=== PATIENT | female | born 1965 | race Caucasian/White ===

== ENCOUNTER 2018-12-10 21:02 | Inpatient (IN) ==
[2018-12-10] MEDS ORDERED: ONDANSETRON INJ 2 MG/ML 2 ML VIAL IV STA (21:56)
[2018-12-10] MEDS ORDERED: SODIUM CHLORIDE 0.9% 1000ML 1,000 ML IV ONE (21:56)
[2018-12-10] MEDS ORDERED: HYDROmorphone INJ 0.5 MG/0.5 ML SYR IV STA (21:56)
[2018-12-10 22:26] LABS: Basophils # (auto) 0.01 K/uL (0-0.2); Basophils % (auto) 0.1 %; Eosinophils # (auto) 0.02 K/uL (0-0.5); Eosinophils % (auto) 0.2 %; Hematocrit (blood only) 28.1 % (37-47); Hemoglobin 9.6 g/dL (12.0-16.0); Immature Granulocytes # (auto) 0.01 K/uL (0.00-0.02); Immature Granulocytes % (auto) 0.1 %; Lymphocytes # (auto) 0.83 K/uL (1.2-3.4); Lymphocytes % (auto) 9.5 %; Mean Corpuscular Hgb Conc 34.2 g/dL (32-36); Mean Corpuscular Volume 84.9 fL (80-100); Mean Platelet Volume 10.9 fL (7.4-10.4); Monocytes # (auto) 0.97 K/uL (0.11-0.59); Monocytes % (auto) 11.1 %; Neutrophils # (auto) 6.89 K/uL (1.4-6.5); Platelet Count 160 K/uL (130-400); RDW Coefficient of Variation 12.5 % (11.5-14.5); RDW Standard Deviation 38.7 fL (36.4-46.3); Red Blood Count 3.31 M/uL (4.2-5.4); White Blood Count 8.73 K/uL (4.8-10.8)
[2018-12-10 22:43] LABS: Albumin Level 3.4 gm/dl (3.4-5.0); BUN Creatinine Ratio 11.6 (10-20); Calcium 8.7 mg/dl (8.5-10.1); Creatinine Clr Calc Pharmacy 33.9 ml/min; Est GFR (African American) 30.5; Est GFR (Non-African American) 26.3; Potassium 3.1 mmol/L (3.5-5.1)
[2018-12-10 22:46] LABS: Albumin Globulin Ratio 0.9 (0.9-2); Bilirubin,Total 0.8 mg/dl (0.2-1); Globulin 3.7 gm/dl (2.5-4.0); Total Protein 7.1 gm/dl (6.4-8.2)
--- NOTE | 2018-12-10 23:01 | CT Scan Report ---
CT SCAN OF THE ABDOMEN AND PELVIS WITHOUT IV CONTRAST CLINICAL HISTORY: Lower abdominal pain. Hematuria. COMPARISON STUDY: No priors. TECHNIQUE: CT scan of the abdomen and pelvis is performed from the lung bases to the proximal femora. Images are reviewed in the axial, sagittal, and coronal planes. IV contrast was not administered for this examination as per the referring clinician. A dose lowering technique was utilized adhering to the principles of ALARA. CT DOSE: 450.70 mGy.cm FINDINGS: Lung bases: The heart is normal in size and there is a small pericardial effusion. The lung bases are clear. Liver: The unenhanced liver is enlarged, measuring 21.9 cm in length. The liver is normal in contour. Hepatic attenuation is heterogeneous. There is no intrahepatic biliary ductal dilatation. Gallbladder: Surgically absent noting clips in the gallbladder fossa. Spleen: Normal in size and attenuation. Pancreas: The unenhanced pancreas is moderately atrophic and grossly unremarkable. Adrenal glands: Unremarkable. Kidneys: The unenhanced kidneys demonstrate cortical atrophy. There is mild right hydroureteronephros is. The right ureter is distended to the level of the bladder, and there is associated right-sided pe rinephric and perinephric stranding/fluid. No obstructing lesion is clearly seen. No hydronephrosis i s seen on the left. No renal calculi are Identified. There is no evidence of contour deforming renal mass lesion. Abdominal vasculature: The abdominal aorta is normal in course and caliber. Stomach and bowel: There is a small hiatal hernia. Postoperative change is noted in the stomach. Ther e is no bowel obstruction. Pill fragments are noted in the cecum. The appendix is not identified and reported surgically absent. Peritoneum: There is no intraperitoneal free air or abdominal ascites. Lymphadenopathy: None. Pelvic viscera: The bladder is normal as visualized. The uterus is surgically absent. No adnexal lesi on is seen. Trace free fluid is noted in the cul-de-sac. Skeletal structures: The skeletal structures are osteopenic. Mild lumbosacral spondylosis is observed . There is postoperative change from L5 -S1 spinal fusion. No lytic or blastic lesions are seen. IMPRESSION: 1. There is mild right hydroureteronephrosis. The right ureter is distended to the level of the bladd er, and there is associated right-sided perinephric and periureteric stranding and fluid. No obstruct ing lesion is identified. This may represent the sequelae of a recently passed kidney stone. Correlat e clinically and with urinalysis for evidence of ascending urinary tract infection. 2. There is no left-sided hydronephrosis, and no renal calculi are identified in either kidney. 3. Hepatomegaly. 4. Trace free fluid in the cul-de-sac is nonspecific and likely on a reactive basis. 5. Additional findings as above. Electronically signed by: Pola Todd M.D. 12/10/2018 11:00 PM
[2018-12-10 23:57] LABS: Appearance Urine Cloudy (Clear); Bacteria Urine Automated Negative (Negative); Bilirubin Urine Negative (Negative); Blood Urine Trace (Negative); Color Urine Yellow; Epithelial Cell Urine Auto >30 /lpf (0-5); Glucose Urine UA Negative (Negative); Ketones Urine Negative (Negative); Leukocyte Esterase Urine Trace (Negative); Nitrite Urine Negative (Negative); Protein Urine 3+ (Negative); RBC Urine Automated 0-4 /hpf (0-4); Specific Gravity Urine 1.015 (1.000-1.030); Urobilinogen Urine Negative (Negative); pH Urine 5.5 (4.5-7.5)
[2018-12-11] MEDS ORDERED: PHENAZOPYRIDINE HCL 200 MG TAB PO STA (00:21)
[2018-12-11] MEDS ORDERED: cefTRIAXone SODIUM 1,000 MG/50 ML BAG IV STA (00:21)
[2018-12-11] MEDS ORDERED: POTASSIUM CHLORIDE / WTR 10 MEQ/100 ML PLCT IV ONE (00:21)
[2018-12-11] MEDS: SODIUM CHLORIDE 0.9% 1000ML 1,000 ML IV STA ×2 (00:33→01:52)
--- NOTE | 2018-12-11 01:44 | History & Physical Report ---
Date of Service December 11, 2018 Assessment & Plan (1) Acute kidney injury (nontraumatic): Acute kidney injury/hyponatremia/hypokalemia- Labs upon admission: Creatinine 2.07, sodium 126, potassium 3.1. Hold HCTZ, lisinopril, Trintellix and metformin. Add serum osmolality and urine osmolality. Will repeat laboratories in a.m. Further management based upon return of osmolality studies. Present on Admission?: Yes (2) Hyponatremia: See above Present on Admission?: Yes (3) Hypokalemia: See above Present on Admission?: Yes (4) Pyelonephritis: Continue ceftriaxone 1 g IV daily begun in the ED. Follow urine culture and sensitivity Present on Admission?: Yes (5) Diabetes mellitus: Hold metformin. Placed on Accu-Cheks before meals and at bedtime with NovoLog coverage per scale. Present on Admission?: Yes (6) Hypertension: Holding HCTZ and lisinopril as noted above. Continue carvedilol 12.5 mg p.o. twice daily with hold parameters. Present on Admission?: Yes (7) Hyperlipidemia: Continue rosuvastatin 20 mg daily Present on Admission?: Yes (8) Depression: Holding Trintellix as noted. Continue Aripiprazole. Present on Admission?: Yes (9) Attention deficit disorder (ADD) in adult: Continue Ritalin 10 mg p.o. 3 times daily. Present on Admission?: Yes (10) Muscle spasm: Cyclobenzaprine 5 mg p.o. 3 times daily as needed Present on Admission?: Yes History of Present Illness Chief Complaint: The patient presents to the emergency department with complaint of generally feeling fatigued, mildly disoriented, and pelvic discomfort. She reports her symptoms began a few weeks ago, but have worsened in the past 24 hours. She denies any personal history of kidney stones, but she does report grandparents have had kidney stones. Primary Care Provider: NO PCP The patient is a 53-year-old female with a past medical history including hypertension, diabetes mellitus, hyperlipidemia, depression, and muscle spasm who reports symptoms initially began 2 weeks ago consisting of generalized fatigue, weakness, disorientation and pelvic discomfort. CT performed in ED shows mild right hydro-nephrosis, and a dilated ureter to the region of the urinary bladder, suggestive of possible recent passage of a kidney stone. She denies any personal history kidney stones, but does report that she has grandparents of a kidney stones. Her mother also was recently diagnosed with a kidney infection. She reports that she regularly drinks about 2 quarts of water daily. She lives in [place], and her medications are prescribed by physicians in [place]. Allergies Allergy/AdvReac Type Severity Reaction Status Date / Time moxifloxacin [From Avelox] Allergy FACIAL Unverified 12/10/18 22:57 SWELLING Home Medications Home Medications Medication Instructions Recorded Confirmed Type aripiprazole 2 mg PO QAM 12/10/18 12/10/18 History carvedilol 12.5 mg PO BID 12/10/18 12/10/18 History cyclobenzaprine 5 mg PO TID PRN 12/10/18 12/10/18 History hydrochlorothiazide 12.5 mg PO DAILY 12/10/18 12/10/18 History lisinopril 20 mg PO DAILY 12/10/18 12/10/18 History metformin 1,000 mg PO BID 12/10/18 12/10/18 History methylphenidate HCl [Ritalin] 10 mg PO TID 12/10/18 12/10/18 History rosuvastatin 20 mg PO DAILY 12/10/18 12/10/18 History vortioxetine [Trintellix] 20 mg PO DAILY 12/10/18 12/10/18 History Past Med/Surg History Medical History Diabetes Hyperlipidemia Hypertension Surgical History History of appendectomy History of hysterectomy Social History Preferred Language: Afghan Feels Safe at Home: Yes Smoking Status: Never smoker Review of Systems Review of Systems: The patient denies chest pain, palpitations, shortness of breath, dyspnea on exertion, cough, lower extremity swelling, sore throat, fevers, chills, sweats, vomiting, diarrhea , constipation, blood in urine or stool, dysuria, urinary frequency or urgency, headache, memory loss, loss of consciousness, rash, abnormal bruising or bleeding, imbalance, focal weakness, numbness or tingling in arms or legs, generalized arthralgias or myalgias, neck pain, or night sweats. The review of systems is otherwise negative other than for that already noted above, and at least 10 systems have been reviewed. Physical Exam Physical Exam: The patient is awake, alert and oriented 3, well developed and well nourished, normocephalic and atraumatic, lying in bed and in no acute distress. HEENT--PERRL, EOMI, mucous membranes and oropharynx dry. Neck--supple. No JVD. No bruits. Thyroid normal, trachea midline, no adenopathy. Heart--normal S1 and S2. No murmurs, rubs or gallops. Lungs--clear bilaterally, no respiratory distress, no accessory muscle use. Abdomen--normal bowel sounds and soft. Nontender. Nondistended, no hernias or masses, no organomegaly. Extremities--no cyanosis or clubbing. No edema. There are good distal pulses b/l. Dermatologic--normal skin turgor, normal color, no abnormal lymph nodes, no rash. Neurologic--cranial nerves II through XII grossly intact. Rheumatologic--normal range of motion. Psychiatric--normal affect. Results & Data Vital Signs (Past 12 Hours) Vital Signs Temp Pulse Pulse Resp BP BP Pulse Ox 12/10/18 22:59 97 12/10/18 22:57 73 16 155/83 H 97 12/10/18 21:05 98.6 F 79 16 166/87 H 100 Laboratory Results Laboratory Results WBC 8.73 K/uL (4.8-10.8) 12/10/18 22:13 RBC 3.31 M/uL (4.2-5.4) L 12/10/18 22:13 Hgb 9.6 g/dL (12.0-16.0) L 12/10/18 22:13 Hct 28.1 % (37-47) L 12/10/18 22:13 MCV 84.9 fL (80-100) 12/10/18 22:13 MCH 29.0 pg (25-34) 12/10/18 22:13 MCHC 34.2 g/dL (32-36) 12/10/18 22:13 RDW Std Deviation 38.7 fL (36.4-46.3) 12/10/18 22:13 RDW Coeff of Tabby 12.5 % (11.5-14.5) 12/10/18 22:13 Plt Count 160 K/uL (130-400) 12/10/18 22:13 MPV 10.9 fL (7.4-10.4) H 12/10/18 22:13 Immature Gran % (Auto) 0.1 % 12/10/18 22:13 Neut % (Auto) 79.0 % 12/10/18 22:13 Lymph % (Auto) 9.5 % 12/10/18 22:13 Clay % (Auto) 11.1 % 12/10/18 22:13 Eos % (Auto) 0.2 % 12/10/18 22:13 Baso % (Auto) 0.1 % 12/10/18 22:13 Immature Gran # (Auto) 0.01 K/uL (0.00-0.02) 12/10/18 22:13 Neut # (Auto) 6.89 K/uL (1.4-6.5) H 12/10/18 22:13 Lymph # (Auto) 0.83 K/uL (1.2-3.4) L 12/10/18 22:13 [place] # (Auto) 0.97 K/uL (0.11-0.59) H 12/10/18 22:13 Eos # (Auto) 0.02 K/uL (0-0.5) 12/10/18 22:13 Baso # (Auto) 0.01 K/uL (0-0.2) 12/10/18 22:13 Sodium 126 mmol/L (136-145) L 12/10/18 22:13 Potassium 3.1 mmol/L (3.5-5.1) L 12/10/18 22:13 Chloride 89 mmol/L (98-107) L 12/10/18 22:13 Carbon Dioxide 26 mmol/L (21-32) 12/10/18 22:13 Anion Gap 11.0 (3-11) 12/10/18 22:13 BUN 24 mg/dl (7-18) H 12/10/18 22:13 Creatinine 2.07 mg/dl (0.6-1.2) H 12/10/18 22:13 Est Cr Clr Drug Dosing 33.9 ml/min 12/10/18 22:13 Est GFR ( Amer) 30.5 12/10/18 22:13 Est GFR (Non-Af Amer) 26.3 12/10/18 22:13 BUN/Creatinine Ratio 11.6 (10-20) 12/10/18 22:13 Glucose 144 mg/dl (70-99) H 12/10/18 22:13 Osmolality 265 mOsm/kg (280-300) L 12/10/18 22:15 Calcium 8.7 mg/dl (8.5-10.1) 12/10/18 22:13 Total Bilirubin 0.8 mg/dl (0.2-1) 12/10/18 22:13 AST 8 U/L (15-37) L 12/10/18 22:13 ALT 11 U/L (12-78) L 12/10/18 22:13 Alkaline Phosphatase 51 U/L (45-117) 12/10/18 22:13 Total Protein 7.1 gm/dl (6.4-8.2) 12/10/18 22:13 Albumin 3.4 gm/dl (3.4-5.0) 12/10/18 22:13 Globulin 3.7 gm/dl (2.5-4.0) 12/10/18 22:13 Albumin/Globulin Ratio 0.9 (0.9-2) 12/10/18 22:13 Lipase 58 U/L (73-393) L 12/10/18 22:13 Urine Color Yellow 12/10/18 23:40 Urine Appearance Cloudy (Clear) A 12/10/18 23:40 Urine pH 5.5 (4.5-7.5) 12/10/18 23:40 Ur Specific [place] 1.015 (1.000-1.030) 12/10/18 23:40 Urine Protein 3+ (Negative) H 12/10/18 23:40 Urine Glucose (UA) Negative (Negative) 12/10/18 23:40 Urine Ketones Negative (Negative) 12/10/18 23:40 Urine Blood Trace (Negative) H 12/10/18 23:40 Urine Nitrite Negative (Negative) 12/10/18 23:40 Urine Bilirubin Negative (Negative) 12/10/18 23:40 Urine Urobilinogen Negative (Negative) 12/10/18 23:40 Ur Leukocyte Esterase Trace (Negative) H 12/10/18 23:40 Urine WBC (Auto) 10-30 /hpf (0-5) H 12/10/18 23:40 Urine RBC (Auto) 0-4 /hpf (0-4) 12/10/18 23:40 U Hyaline Cast (Auto) 5-10 /lpf (0-5) H 12/10/18 23:40 U Epithel Cells (Auto) >30 /lpf (0-5) H 12/10/18 23:40 Urine Bacteria (Auto) Negative (Negative) 12/10/18 23:40 Ur Renal Epithelial Cell Not Reportable 12/10/18 23:40 Diagnostic Findings [place], [place] [phone] CT Scan Report Patient: Madelaine FOFANAit Date: 12/10/18 MR#: [id number] Acct ID:[id number]: Date: [address] Zip: [place] [id number] Age: 53Location: ED Sex: F Room/Bed: Att Phy: Diagnosis: ABDOMINAL PAIN, HAVEN'T PEED ALL DAY Mary Phy: PCP,NO Service Date: 12/10/18 Fam Phy: Interpreting Phy: Ploa Todd MD Admit Phy: Ordering Phy: Stuart Rm MD cc: ~ CT SCAN OF THE ABDOMEN AND PELVIS WITHOUT IV CONTRAST CLINICAL HISTORY: Lower abdominal pain. Hematuria. COMPARISON STUDY: No priors. TECHNIQUE: CT scan of the abdomen and pelvis is performed from the lung bases to the proximal femora. Images are reviewed in the axial, sagittal, and coronal planes. IV contrast was not administered for this examination as per the referring clinician. A dose lowering technique was utilized adhering to the p rinciples of ALARA. CT DOSE: 450.70 mGy.cm FINDINGS: Lung bases: The heart is normal in size and there is a small pericardial effusion. The lung bases are clear. Liver: The unenhanced liver is enlarged, measuring 21.9 cm in length. The liver is normal in contour. Hepatic attenuation is heterogeneous. There is no intrahepatic biliary ductal dilatation. Gallbladder: Surgically absent noting clips in the gallbladder fossa. Spleen: Normal in size and attenuation. Pancreas: The unenhanced pancreas is moderately atrophic and grossly unremarkable. Adrenal glands: Unremarkable. Kidneys: The unenhanced kidneys demonstrate cortical atrophy. There is mild right hydroureteronephrosis. The right ureter is distended to the level of the bladder, and there is associated right-sided perinephric and perinephric stranding/fluid. No obstructing lesion is clearly seen. No hydronephrosis is seen on the left. No renal calculi are Identified. There is no evidence of contour deforming renal mass lesion. Abdominal vasculature: The abdominal aorta is normal in course and caliber. Stomach and bowel: There is a small hiatal hernia. Postoperative change is noted in the stomach. There is no bowel obstruction. Pill fragments are noted in the cecum. The appendix is not identified and reported surgically absent. Peritoneum: There is no intraperitoneal free air or abdominal ascites. Lymphadenopathy: None. Pelvic viscera: The bladder is normal as visualized. The uterus is surgically absent. No adnexal lesion is seen. Trace free fluid is noted in the cul-de-sac. Skeletal structures: The skeletal structures are osteopenic. Mild lumbosacral spondylosis is observed. There is postoperative change from L5 -S1 spinal fusion. No lytic or blastic lesions are seen. IMPRESSION: 1. There is mild right hydroureteronephrosis. The right ureter is distended to the level of the bladder, and there is associated right-sided perinephric and periureteric stranding and fluid. No obstructing lesion is identified. This may represent the sequelae of a recently passed kidney stone. Correlate clinically and with urinalysis for evidence of ascending urinary tract infection. 2. There is no left-sided hydronephrosis, and no renal calculi are identified in either kidney. 3. Hepatomegaly. 4. Trace free fluid in the cul-de-sac is nonspecific and likely on a reactive basis. 5. Additional findings as above. Electronically signed by: Pola Todd M.D. 12/10/2018 11:00 PM Dictated: 12/10/18 2253 Transcribed: 12/10/18 2253 Code Status & VTE Plan Code Status Full code VTE Prophylaxis Plan VTE Prophylaxis will be ordered: Yes PG Care Time/CCT Total # of Minutes Spent Total Time Spent with Patient: Total time spent is greater than 50% in coordination of care (as documented) at patient's floor/unit and/or counseling patient:
--- NOTE | 2018-12-11 01:45 | Emergency Department Note ---
Entered by Mary Leon acting as a scribe for Stuart Rm MD ED Provider Note CHIEF COMPLAINT: Unable to void HISTORY OF PRESENT ILLNESS: The patient is a 53 year old female who presents to the Emergency Room with complaints of being unable to void since this morning. She complains of lower abdominal pain, rating it as an 8/10 in severity. The patient complains of urinary urgency for the past 2 weeks. She complains of nausea/vomiting today. The patient notes that she had hematuria two weeks ago, but it is now relieved. Pt denies LOC, headache, fevers, chills, diaphoresis, visual changes, neck pain, chest pain, breathing difficulties, back pain, melena, hematochezia, numbness, weakness, lymphadenopathy, rash, or other complaints. She notes that she took Cystex [employer], but it provided no relief. REVIEW OF SYSTEMS: See HPI for pertinent positives and negatives. A total of ten systems were reviewed and were otherwise negative. PMHx/PSHx: Hysterectomy, appendectomy, HTN, hyperlipidemia, diabetes SOCIAL HISTORY: Patient lives at home. PHYSICAL EXAM: GENERAL: Awake, alert, well-appearing, in no distress HENT: Normocephalic, atraumatic. Oropharynx unremarkable. EYES: PERRL. Normal conjunctiva. Sclera non-icteric. NECK: Inspection normal. Non-tender. Supple. No nuchal rigidity. FROM. No masses. RESPIRATORY: Clear to auscultation. No wheezes. No rales. Normal respiratory effort. CARDIAC: Normal rate. Normal rhythm. No murmurs. No rubs. Extremities warm and well perfused. Pulses equal. No JVD. GI: Soft, non-distended. Suprapubic tenderness to palpation. No rebound or guarding. No masses. RECTAL: Deferred. MUSCULOSKELETAL: Atraumatic. Chest examination reveals no tenderness. The back is symmetrical on inspection without obvious abnormality. There is right CVA tenderness to palpation. No joint edema. LOWER EXTREMITIES: Calves are equal size bilaterally and non-tender. No edema. No discoloration. NEURO: Normal sensorium. No sensory or motor deficits noted. SKIN: No rash or jaundice noted. EMERGENCY DEPARTMENT COURSE: 2152: Past medical records reviewed. The patient was evaluated in room C07, and a complete history and physical examination were performed. 2303: PN reviewed and no issues identified. 2358: I reassessed the patient, and she stated that she feels better. She reported that, as far as she knows, the sodium, potassium, renal issues, and anemia are all new. 0020: Dr. Akbar was paged. 0036: I spoke with Dr. Akbar, [facility] hospitalist, about the patient's case. He will further evaluate the patient. MEDICAL DECISION MAKING: Triage Nursing notes reviewed and agree them. Additional history obtained from the family. The patient's history was concerning for urinary symptoms, flank and abdominal pain. Differential diagnosis: Etiologies such as UTI, renal colic, appendicitis, diverticulitis, mesenteric ischemia, aortic pathology, infections, inflammatory bowel disease, PUD, biliary pathology, as well as others were entertained. Physical examination findings: As above. Bladder scan was unremarkable. ER treatment provided: Saline hydration IV Zofran IV Dilaudid On reassessment the patient was feeling better. IV potassium IV Rocephin Oral Pyridium On reassessment the patient felt better. Diagnostic interpretation by me: The labs revealed a moderate anemia on CBC. No leukocytosis. The patient has hyponatremia, hypokalemia, and an elevated creatinine concerning for acute kidney injury. Urinalysis revealed hematuria. There was sign of UTI. Urine culture pending. Imaging studies: CT scan of the abdomen pelvis was performed. There is right-sided hydronephrosis and hydroureter with stranding. In light of the symptoms finding on urinalysis, this is concerning for infection. Consultation: A consultation was placed with the [facility] hospitalist. The case was discussed and diagnostics were reviewed. The patient was evaluated in the ER for further treatment. IMPRESSION: Acute renal failure, hyponatremia, hypokalemia, pyelonephritis PLAN: Evaluated by hospitalist The scribe's documentation has been prepared under my direction and personally reviewed by me in its entirety. I confirm that the note above accurately reflects all work, treatment, procedures, and medical decision making performed by me. Impression & Plan Acute renal failure, Hyponatremia, Hypokalemia, Pyelonephritis Past Med/Surg History Medical History Diabetes Hyperlipidemia Hypertension Surgical History History of appendectomy History of hysterectomy Social History Preferred Language: Guatemalan Feels Safe at Home: Yes Smoking Status: Never smoker Results & Data Vital Signs Vital Signs - 24 hr 12/10/18 21:05 12/10/18 22:57 12/10/18 22:59 Temperature 37.0 C Temperature Source Oral Sepsis Recent Fever Within 48 Hours No Sepsis New/Unexplained Change in Mental Status No Sepsis Action Taken by Nursing No Action Required Pulse Rate 79 Pulse Rate [Apical] 73 Pulse Rhythm [Apical] Regular Pulse Strength [Apical] Normal Respiratory Rate 16 16 Respiratory Effort / Characteristics Non-Labored Respiratory Depth Normal Respiratory Pattern Regular Blood Pressure 166/87 H Blood Pressure [Right Arm] 155/83 H Blood Pressure Mean 113 Blood Pressure Mean [Right Arm] 107 Blood Pressure Position [Right Arm] Lying Pulse Oximetry 100 97 97 Oxygen Delivery Method Room Air Room Air Room Air Home Medications Current Medication List: was personally reviewed by me Laboratory Data Attestation: I reviewed the patient's lab results. Result diagrams: 12/10/18 22:13 12/10/18 22:13 Lab Results 12/10/18 12/10/18 12/10/18 Range/Units 22:13 22:13 22:15 WBC 8.73 (4.8-10.8) K/uL RBC 3.31 L (4.2-5.4) M/uL Hgb 9.6 L (12.0-16.0) g/dL Hct 28.1 L (37-47) % MCV 84.9 (80-100) fL MCH 29.0 (25-34) pg MCHC 34.2 (32-36) g/dL RDW Std Deviation 38.7 (36.4-46.3) fL RDW Coeff of Tabby 12.5 (11.5-14.5) % Plt Count 160 (130-400) K/uL MPV 10.9 H (7.4-10.4) fL Immature Gran % (Auto) 0.1 % Neut % (Auto) 79.0 % Lymph % (Auto) 9.5 % Ritchie % (Auto) 11.1 % Eos % (Auto) 0.2 % Baso % (Auto) 0.1 % Immature Gran # (Auto) 0.01 (0.00-0.02) K/uL Neut # (Auto) 6.89 H (1.4-6.5) K/uL Lymph # (Auto) 0.83 L (1.2-3.4) K/uL Ritchie # (Auto) 0.97 H (0.11-0.59) K/uL Eos # (Auto) 0.02 (0-0.5) K/uL Baso # (Auto) 0.01 (0-0.2) K/uL Sodium 126 L (136-145) mmol/L Potassium 3.1 L (3.5-5.1) mmol/L Chloride 89 L (98-107) mmol/L Carbon Dioxide 26 (21-32) mmol/L Anion Gap 11.0 (3-11) BUN 24 H (7-18) mg/dl Creatinine 2.07 H (0.6-1.2) mg/dl Est Cr Clr Drug Dosing 33.9 ml/min Est GFR ( Amer) 30.5 Est GFR (Non-Af Amer) 26.3 BUN/Creatinine Ratio 11.6 (10-20) Glucose 144 H (70-99) mg/dl Osmolality 265 L (280-300) mOsm/kg Calcium 8.7 (8.5-10.1) mg/dl Total Bilirubin 0.8 (0.2-1) mg/dl AST 8 L (15-37) U/L ALT 11 L (12-78) U/L Alkaline Phosphatase 51 (45-117) U/L Total Protein 7.1 (6.4-8.2) gm/dl Albumin 3.4 (3.4-5.0) gm/dl Globulin 3.7 (2.5-4.0) gm/dl Albumin/Globulin Ratio 0.9 (0.9-2) Lipase 58 L (73-393) U/L Urine Color Urine Appearance (Clear) Urine pH (4.5-7.5) Ur Specific [place] (1.000-1.030) Urine Protein (Negative) Urine Glucose (UA) (Negative) Urine Ketones (Negative) Urine Blood (Negative) Urine Nitrite (Negative) Urine Bilirubin (Negative) Urine Urobilinogen (Negative) Ur Leukocyte Esterase (Negative) Urine WBC (Auto) (0-5) /hpf Urine RBC (Auto) (0-4) /hpf U Hyaline Cast (Auto) (0-5) /lpf U Epithel Cells (Auto) (0-5) /lpf Urine Bacteria (Auto) (Negative) Ur Renal Epithelial Cell 12/10/18 Range/Units 23:40 WBC (4.8-10.8) K/uL RBC (4.2-5.4) M/uL Hgb (12.0-16.0) g/dL Hct (37-47) % MCV (80-100) fL MCH (25-34) pg MCHC (32-36) g/dL RDW Std Deviation (36.4-46.3) fL RDW Coeff of Tabby (11.5-14.5) % Plt Count (130-400) K/uL MPV (7.4-10.4) fL Immature Gran % (Auto) % Neut % (Auto) % Lymph % (Auto) % Ritchie % (Auto) % Eos % (Auto) % Baso % (Auto) % Immature Gran # (Auto) (0.00-0.02) K/uL Neut # (Auto) (1.4-6.5) K/uL Lymph # (Auto) (1.2-3.4) K/uL Ritchie # (Auto) (0.11-0.59) K/uL Eos # (Auto) (0-0.5) K/uL Baso # (Auto) (0-0.2) K/uL Sodium (136-145) mmol/L Potassium (3.5-5.1) mmol/L Chloride (98-107) mmol/L Carbon Dioxide (21-32) mmol/L Anion Gap (3-11) BUN (7-18) mg/dl Creatinine (0.6-1.2) mg/dl Est Cr Clr Drug Dosing ml/min Est GFR ( Amer) Est GFR (Non-Af Amer) BUN/Creatinine Ratio (10-20) Glucose (70-99) mg/dl Osmolality (280-300) mOsm/kg Calcium (8.5-10.1) mg/dl Total Bilirubin (0.2-1) mg/dl AST (15-37) U/L ALT (12-78) U/L Alkaline Phosphatase (45-117) U/L Total Protein (6.4-8.2) gm/dl Albumin (3.4-5.0) gm/dl Globulin (2.5-4.0) gm/dl Albumin/Globulin Ratio (0.9-2) Lipase (73-393) U/L Urine Color Yellow Urine Appearance Cloudy A (Clear) Urine pH 5.5 (4.5-7.5) Ur Specific [place] 1.015 (1.000-1.030) Urine Protein 3+ H (Negative) Urine Glucose (UA) Negative (Negative) Urine Ketones Negative (Negative) Urine Blood Trace H (Negative) Urine Nitrite Negative (Negative) Urine Bilirubin Negative (Negative) Urine Urobilinogen Negative (Negative) Ur Leukocyte Esterase Trace H (Negative) Urine WBC (Auto) 10-30 H (0-5) /hpf Urine RBC (Auto) 0-4 (0-4) /hpf U Hyaline Cast (Auto) 5-10 H (0-5) /lpf U Epithel Cells (Auto) >30 H (0-5) /lpf Urine Bacteria (Auto) Negative (Negative) Ur Renal Epithelial Cell Not Reportable Administered Medications Sodium Chloride (Nss 1000ml) 1,000 mls @ 125 mls/hr IV .Q8H STA Stop: 12/11/18 08:20 Last Admin: 12/11/18 00:33 Dose: 125 mls/hr Documented by: [id number] Discontinued Medications Hydromorphone HCl (Dilaudid) 0.5 mg IV NOW STA Stop: 12/10/18 21:57 Last Admin: 12/10/18 22:18 Dose: 0.5 mg Documented by: [id number] Sodium Chloride (Nss 1000ml) 1,000 mls @ 999 mls/hr IV .Q1H1M ONE Stop: 12/10/18 22:56 Last Infusion: 12/10/18 23:36 Dose: 0 mls/hr Documented by: [id number] Admin: 12/10/18 22:15 Dose: 999 mls/hr Documented by: [id number] Ceftriaxone Sodium (Rocephin) 1,000 mg in 50 mls @ 100 mls/hr IV NOW STA Stop: 12/11/18 00:50 Last Admin: 12/11/18 00:32 Dose: 100 mls/hr Documented by: [id number] Potassium Chloride (K Emmett / Wtr) 10 meq in 100 mls @ 100 mls/hr IV ONE ONE Stop: 12/11/18 01:20 Last Admin: 12/11/18 00:33 Dose: 100 mls/hr Documented by: [id number] Ondansetron HCl (Zofran) 4 mg IV NOW STA Stop: 12/10/18 21:57 Last Admin: 12/10/18 22:19 Dose: 4 mg Documented by: [id number] Phenazopyridine HCl (Pyridium) 200 mg PO NOW STA Stop: 12/11/18 00:22 Last Admin: 12/11/18 00:32 Dose: 200 mg Documented by: [id number] Imaging Data Radiologist's Impression: Radiology results as stated below per my review and the radiologist's interpretation: CT SCAN OF THE ABDOMEN AND PELVIS WITHOUT IV CONTRAST CLINICAL HISTORY: Lower abdominal pain. Hematuria. COMPARISON STUDY: No priors. TECHNIQUE: CT scan of the abdomen and pelvis is performed from the lung bases to the proximal femora. Images are reviewed in the axial, sagittal, and coronal planes. IV contrast was not administered for this examination as per the referring clinician. A dose lowering technique was utilized adhering to the prin ciples of MARÍA. CT DOSE: 450.70 mGy.cm FINDINGS: Lung bases: The heart is normal in size and there is a small pericardial effusion. The lung bases are clear. Liver: The unenhanced liver is enlarged, measuring 21.9 cm in length. The liver is normal in contour. Hepatic attenuation is heterogeneous. There is no intrahepatic biliary ductal dilatation. Gallbladder: Surgically absent noting clips in the gallbladder fossa. Spleen: Normal in size and attenuation. Pancreas: The unenhanced pancreas is moderately atrophic and grossly unremarkable. Adrenal glands: Unremarkable. Kidneys: The unenhanced kidneys demonstrate cortical atrophy. There is mild right hydroureteronephrosis. The right ureter is distended to the level of the bladder, and there is associated right-sided perinephric and perinephric stranding/fluid. No obstructing lesion is clearly seen. No hydronephrosis is seen on the left. No renal calculi are Identified. There is no evidence of contour deforming renal mass lesion. Abdominal vasculature: The abdominal aorta is normal in course and caliber. Stomach and bowel: There is a small hiatal hernia. Postoperative change is noted in the stomach. There is no bowel obstruction. Pill fragments are noted in the cecum. The appendix is not identified and reported surgically absent. Peritoneum: There is no intraperitoneal free air or abdominal ascites. Lymphadenopathy: None. Pelvic viscera: The bladder is normal as visualized. The uterus is surgically absent. No adnexal lesion is seen. Trace free fluid is noted in the cul-de-sac. Skeletal structures: The skeletal structures are osteopenic. Mild lumbosacral spondylosis is observed. There is postoperative change from L5 -S1 spinal fusion. No lytic or blastic lesions are seen. IMPRESSION: 1. There is mild right hydroureteronephrosis. The right ureter is distended to the level of the bladder, and there is associated right-sided perinephric and periureteric stranding and fluid. No obstructing lesion is identified. This may represent the sequelae of a recently passed kidney stone. Correlate clinically and with urinalysis for evidence of ascending urinary tract infection. 2. There is no left-sided hydronephrosis, and no renal calculi are identified in either kidney. 3. Hepatomegaly. 4. Trace free fluid in the cul-de-sac is nonspecific and likely on a reactive basis. 5. Additional findings as above. Electronically signed by: Pola Todd M.D. 12/10/2018 11:00 PM Blood Pressure Blood Pressure Findings: Elevated blood pressure Blood Pressure Disposition: further management by hospitalist Discharge Plan Visit Data Chief Complaint: Unable to Void Stated Complaint: ABDOMINAL PAIN, HAVEN'T PEED ALL DAY ED Provider: Stuart Rm Discharge Problem: Acute renal failure, Hyponatremia, Hypokalemia, Pyelonephritis Patient Disposition: Being Evaluated by Hospitalist Forms Stand Alone Forms: My [facility] Prescriptions Prescriptions: No Action methylphenidate HCl [Ritalin] 10 mg Tablet 10 mg PO TID RF: 0 lisinopril 20 mg tablet 20 mg PO DAILY RF: 0 carvedilol 12.5 mg tablet 12.5 mg PO BID RF: 0 metformin 1,000 mg tablet 1,000 mg PO BID RF: 0 Trintellix 20 mg tablet 20 mg PO DAILY RF: 0 rosuvastatin 20 mg tablet 20 mg PO DAILY RF: 0 cyclobenzaprine 5 mg tablet 5 mg PO TID PRN (Reason: Spasms) RF: 0 aripiprazole 2 mg tablet 2 mg PO QAM RF: 0 hydrochlorothiazide 12.5 mg tablet 12.5 mg PO DAILY RF: 0 Referrals Referrals: PCP,NO [Primary Care Provider] - Discharge Problem: Acute renal failure Qualifiers: Acute renal failure type: unspecified Qualified Code(s): N17.9 - Acute kidney failure, unspecified The scribe's documentation has been prepared under my direction and personally reviewed by me in its entirety. I confirm that the note above accurately reflects all work, treatment, procedures, and medical decision making performed by me.
[2018-12-11] MEDS ORDERED: HYDROmorphone INJ 0.5 MG/0.5 ML SYR IV STA (02:11)
[2018-12-11] MEDS ORDERED: CARBOHYDRATES FOR HYPOGLYCEMIA PO PRN (02:40)
[2018-12-11] MEDS ORDERED: GLUCOSE 40% GEL 15 GM TUBE PO PRN (02:40)
[2018-12-11] MEDS ORDERED: ALUMINUM/MAGNESIUM SUSP 30 ML UDC PO PRN (02:40)
[2018-12-11] MEDS ORDERED: CYCLOBENZAPRINE HCL 5 MG TAB PO PRN (02:40)
[2018-12-11] MEDS ORDERED: GLUCOSE 10 TABS/TUBE PO PRN (02:40)
[2018-12-11] MEDS ORDERED: GLUCAGON FOR INJ 1 MG VIAL SQ PRN (02:40)
[2018-12-11] MEDS ORDERED: DEXTROSE 50% 50 ML SYRINGE IV PRN (02:40)
[2018-12-11] MEDS ORDERED: ONDANSETRON INJ 2 MG/ML 2 ML VIAL IV PRN (02:40)
[2018-12-11] MEDS ORDERED: POLYETHYLENE (MIRALAX) 17 GM PACK PO PRN (02:40)
[2018-12-11] MEDS ORDERED: MAGNESIUM HYDROXIDE SUSP 30 ML UDC PO PRN (02:40)
[2018-12-11] MEDS ORDERED: ACETAMINOPHEN 325 MG TAB PO PRN (02:40)
[2018-12-11] MEDS: CARVEDILOL 12.5 MG TAB PO SCH ×3 (03:06→20:57)
[2018-12-11] MEDS: ACETAMINOPHEN 1000 MG/100 ML IV IV PRN ×2 (06:23→14:27)
[2018-12-11 06:53] LABS: Basophils # (auto) 0.01 K/uL (0-0.2); Basophils % (auto) 0.1 %; Eosinophils # (auto) 0.03 K/uL (0-0.5); Eosinophils % (auto) 0.4 %; Hematocrit (blood only) 26.6 % (37-47); Hemoglobin 9.2 g/dL (12.0-16.0); Immature Granulocytes # (auto) 0.02 K/uL (0.00-0.02); Immature Granulocytes % (auto) 0.3 %; Lymphocytes # (auto) 0.89 K/uL (1.2-3.4); Lymphocytes % (auto) 12.4 %; Mean Corpuscular Hgb Conc 34.6 g/dL (32-36); Mean Corpuscular Volume 83.9 fL (80-100); Mean Platelet Volume 10.8 fL (7.4-10.4); Monocytes % (auto) 11.2 %; Neutrophils # (auto) 5.41 K/uL (1.4-6.5); Neutrophils % (auto) 75.6 %; Platelet Count 156 K/uL (130-400); RDW Coefficient of Variation 12.4 % (11.5-14.5); RDW Standard Deviation 38.1 fL (36.4-46.3); Red Blood Count 3.17 M/uL (4.2-5.4); White Blood Count 7.16 K/uL (4.8-10.8)
[2018-12-11 07:02] LABS: Partial Thromboplastin Ratio 1.1; Partial Thromboplastin Time 31.1 Seconds (21.0-31.0); Prothrombin Time 10.6 Seconds (9.0-12.0)
[2018-12-11 07:32] LABS: BUN Creatinine Ratio 13.6 (10-20); Calcium 9.1 mg/dl (8.5-10.1); Creatinine Clr Calc Pharmacy 48.5 ml/min; Est GFR (African American) 47.3; Est GFR (Non-African American) 40.8; Potassium 3.4 mmol/L (3.5-5.1)
[2018-12-11 07:35] LABS: Albumin Globulin Ratio 0.9 (0.9-2); Bilirubin,Total 0.5 mg/dl (0.2-1); Globulin 3.4 gm/dl (2.5-4.0); Total Protein 6.4 gm/dl (6.4-8.2)
[2018-12-11] MEDS ORDERED: LISINOPRIL 20 MG TAB PO SCH (09:00)
[2018-12-11] MEDS: ARIPIprazole 1 MG/ML ORAL SOLN 150 ML BTL PO SCH (09:14)
[2018-12-11] MEDS: ROSUVASTATIN CALCIUM 20 MG TAB PO SCH (09:14)
[2018-12-11] MEDS: METHYLPHENIDATE HCL 10 MG TABLET PO SCH ×3 (09:16→20:57)
[2018-12-11] MEDS: INSULIN ASPART 100 UNITS/ML 3 ML PEN SC SCH ×4 (09:20→20:59)
[2018-12-11] MEDS: HEPARIN SOD 5,000 UNIT/0.5 ML VIAL SQ SCH ×2 (09:23→20:59)
--- NOTE | 2018-12-11 13:54 | Hospitalist Progress Note ---
Date of Service December 11, 2018 Assessment & Plan (1) Acute kidney injury (nontraumatic): - This is likely the result of obstructive uropathy as a passed stone is fitting with imaging findings and patient report and likely influenced further given HCTZ, Lisinopril, Trintellix, and Metformin - Cr already improving with hydration - initial Cr of 2.07 and now to 1.44 and continue to monitor - Continue to hold HCTZ, Lisinopril, Trintellix, and Metformin at this time - given this was likely due to obstructive uropathy could likely resume home medications on D/C Present on Admission?: Yes (2) Electrolyte abnormality: - Presented with hyponatremia and hypokalemia which are being repleted and normalizing; urine osms were still pending on my assessment - However suspect correction of renal function and holding HCTZ at least temporarily will improve labs Present on Admission?: Yes (3) Pyelonephritis: - Her symptoms are fitting for a stone but an upper urinary tract infection could be possible - UCx is pending and continue Ceftriaxone 1 g IV daily Present on Admission?: Yes (4) Diabetes mellitus: - Hold metformin and cover with SSI; A1c is pending Present on Admission?: Yes (5) Hypertension: - STABLE - Continue to hold HCTZ and Lisinopril at this time; Continue Carvedilol 12.5 mg BID Present on Admission?: Yes (6) Hyperlipidemia: - Continue Rosuvastatin 20 mg daily Present on Admission?: Yes (7) Depression: - Holding Trintellix as noted; Continue Aripiprazole 2 mg daily Present on Admission?: Yes (8) Attention deficit disorder (ADD) in adult: - Continue Ritalin 10 mg TID (9) Muscle spasm: - Cyclobenzaprine 5 mg TID PRN (10) DVT prophylaxis: - SCDs Disposition: Check AM labs and UCx - likely can D/C home tomorrow pending symptom improvement Subjective Reports feeling a bit better today but still fatigued and got minimal sleep. She does recall having a sharp knife-like pain during this episode and likely did pass a stone which is suggested on imaging. Likely renal function was the result of an obstructive process with medications escalating. She verbalizes no new complaints. Review of Systems Constitutional: + fatigue; no fever and no chills Respiratory: no cough and no dyspnea Cardiovascular: no chest pain, no palpitations, no lightheadedness and no edema Gastrointestinal: no abdominal pain, no nausea, no vomiting, no constipation and no diarrhea/loose stools Genitourinary: + hematuria (initially - now orange urine due to pyridium); no dysuria and no flank pain Integumentary: no rash Physical Exam Constitutional: WD/WN, vitals as above Eyes: + anicteric sclerae ENMT: Ears: no hearing impairment Neck: trachea midline Respiratory: normal respiratory effort, lungs clear to auscultation Cardiovascular: RRR, no murmur, no edema Gastrointestinal (Abdomen): Inspection/Auscultation: normal bowel sounds Percussion/Palpation: abdomen soft; abdomen nontender Musculoskeletal: Head/Neck/Chest: normocephalic, head atraumatic and neck supple Skin: no rashes, warm and dry Neurologic: moves all extremities Psychiatric: A+Ox3, euthymic affect Results & Data Vital Signs (Past 12 Hours) Vital Signs Temp Pulse Pulse Resp BP BP Pulse Ox 12/11/18 09:17 65 95/56 L 12/11/18 08:08 37 C 62 17 104/63 94 12/11/18 02:58 149/80 H 12/11/18 02:42 37.7 C H 73 16 171/80 H 95 PG Care Time/CCT Total # of Minutes Spent Total Time Spent with Patient: Total time spent is greater than 50% in coordination of care (as documented) at patient's floor/unit and/or counseling patient:
[2018-12-11] MEDS ORDERED: ACETAMINOPHEN 1,000 MG/100 ML VIAL IV PRN (15:00)
[2018-12-12] MEDS ORDERED: cefTRIAXone SODIUM 1,000 MG in DEXTROSE 5% 50 ML IV SCH
[2018-12-12 06:25] LABS: Basophils # (auto) 0.01 K/uL (0-0.2); Basophils % (auto) 0.3 %; Eosinophils # (auto) 0.05 K/uL (0-0.5); Eosinophils % (auto) 1.3 %; Hematocrit (blood only) 28.8 % (37-47); Hemoglobin 9.7 g/dL (12.0-16.0); Immature Granulocytes # (auto) 0.01 K/uL (0.00-0.02); Immature Granulocytes % (auto) 0.3 %; Lymphocytes # (auto) 0.84 K/uL (1.2-3.4); Lymphocytes % (auto) 22.6 %; Mean Corpuscular Hgb Conc 33.7 g/dL (32-36); Mean Corpuscular Volume 86.2 fL (80-100); Mean Platelet Volume 11.2 fL (7.4-10.4); Monocytes % (auto) 16.1 %; Neutrophils # (auto) 2.21 K/uL (1.4-6.5); Neutrophils % (auto) 59.4 %; Platelet Count 157 K/uL (130-400); RDW Coefficient of Variation 12.5 % (11.5-14.5); RDW Standard Deviation 40.1 fL (36.4-46.3); Red Blood Count 3.34 M/uL (4.2-5.4); White Blood Count 3.72 K/uL (4.8-10.8)
[2018-12-12 06:45] LABS: Partial Thromboplastin Ratio 1.2; Partial Thromboplastin Time 32.2 Seconds (21.0-31.0); Prothrombin Time 10.4 Seconds (9.0-12.0)
[2018-12-12 06:46] LABS: Estimated Average Glucose 174 mg/dl; Hemoglobin A1C 7.7 % (4.5-5.6)
[2018-12-12 06:55] LABS: Albumin Level 3.1 gm/dl (3.4-5.0); BUN Creatinine Ratio 12.2 (10-20); Calcium 9.6 mg/dl (8.5-10.1); Creatinine Clr Calc Pharmacy 61.2 ml/min; Est GFR (African American) 62.7; Est GFR (Non-African American) 54.1; Potassium 3.6 mmol/L (3.5-5.1)
[2018-12-12 06:59] LABS: Albumin Globulin Ratio 0.8 (0.9-2); Bilirubin,Total 0.3 mg/dl (0.2-1); Globulin 3.7 gm/dl (2.5-4.0); Total Protein 6.8 gm/dl (6.4-8.2)
[2018-12-12] MEDS: CARVEDILOL 12.5 MG TAB PO SCH (08:12)
[2018-12-12] MEDS: ROSUVASTATIN CALCIUM 20 MG TAB PO SCH (08:13)
[2018-12-12] MEDS: ARIPIprazole 1 MG/ML ORAL SOLN 150 ML BTL PO SCH (08:13)
[2018-12-12] MEDS: METHYLPHENIDATE HCL 10 MG TABLET PO SCH (08:15)
[2018-12-12] MEDS: HEPARIN SOD 5,000 UNIT/0.5 ML VIAL SQ SCH (08:17)
[2018-12-12] MEDS: INSULIN ASPART 100 UNITS/ML 3 ML PEN SC SCH (09:11)
[2018-12-12 11:48] LABS: Ferritin 145.8 ng/ml (8-388)
[2018-12-12 12:12] LABS: Folate (Folic Acid) 21.02 ng/ml (>5.38)
--- NOTE | 2018-12-12 14:59 | Discharge Summary ---
Date of Service December 12, 2018 Admission HPI Per Admitting Provider The patient is a 53-year-old female with a past medical history including hypertension, diabetes mellitus, hyperlipidemia, depression, and muscle spasm who reports symptoms initially began 2 weeks ago consisting of generalized fatigue, weakness, disorientation and pelvic discomfort. CT performed in ED shows mild right hydro-nephrosis, and a dilated ureter to the region of the urinary bladder, suggestive of possible recent passage of a kidney stone. She denies any personal history kidney stones, but does report that she has grandparents of a kidney stones. Her mother also was recently diagnosed with a kidney infection. She reports that she regularly drinks about 2 quarts of water daily. She lives in [place], and her medications are prescribed by physicians in [place]. Admission Exam Per Admitting Provider The patient is awake, alert and oriented 3, well developed and well nourished, normocephalic and atraumatic, lying in bed and in no acute distress. HEENT--PERRL, EOMI, mucous membranes and oropharynx dry. Neck--supple. No JVD. No bruits. Thyroid normal, trachea midline, no adenopathy. Heart--normal S1 and S2. No murmurs, rubs or gallops. Lungs--clear bilaterally, no respiratory distress, no accessory muscle use. Abdomen--normal bowel sounds and soft. Nontender. Nondistended, no hernias or masses, no organomegaly. Extremities--no cyanosis or clubbing. No edema. There are good distal pulses b/l. Dermatologic--normal skin turgor, normal color, no abnormal lymph nodes, no rash. Neurologic--cranial nerves II through XII grossly intact. Rheumatologic--normal range of motion. Psychiatric--normal affect. Principal Diagnosis MNAOJ/Pyelonephritis Discharge Exam General: Resting comfortably in no apparent distress HEENT: NC/AT; PERRLA with EOMI; [place] conjunctiva, MMM. No erythema of posterior pharynx Neck: Supple and nontender Cardiac: RRR w/o murmurs, gallops or rubs Lungs: CTA bilaterally; No rhonchi, wheezing, or rales Abdomen: Bowel normoactive X 4; Tender to deep palpation over lower abd. Extremities: Warm. No edema present Neuro: No focal weakness Skin: No rash Discharge Data Allergies Allergy/AdvReac Type Severity Reaction Status Date / Time moxifloxacin [From Avelox] Allergy FACIAL Unverified 12/10/18 22:57 SWELLING Consultations 12/11/18 00:21 ED Decision to Admit Stat 12/11/18 02:40 Consult Case Management - Discharge Planning Routine Ordered Studies 12/10/18 21:56 CT abd pelvis wo con Stat Hospital Course (1) Acute kidney injury (nontraumatic): This is likely the result of obstructive uropathy as a passed stone is fitting with imaging findings and patient report and likely influenced further given HCTZ, Lisinopril, Trintellix, and Metformin Initial Cr of 2.07, improved throughout admission. Held HCTZ, Lisinopril, Trintellix, and Metformin at this time. Will continue to hold HCTZ, Lisinopril at discharge due to hypotension; plan to resume Trintellix and Metformin. (2) Pyelonephritis: Previous UC from last week as outpt +E. coli, mostly pansensitive. UC from the ER is pending. Will discharge with course of Cefdinir 300 mg BID for 10 day course; also received Ceftriaxone as inpatient. (3) Acute anemia: Acute anemia -- hgb ~9. Previously normal per past lab work. Most recent colonoscopy was age 48, had noncancerous polyp per patient. Iron studies were c/w iron deficiency anemia. B12 level was 223, Folate level was 21.02. Called patient and instructed her to take iron supplement daily, increase to BID if tolerating, along with B12 supplement daily. Will need outpatient GI work up along with repeat iron studies and B12 level in 3-4 weeks. (4) Diabetes mellitus: Held home metformin; SSI coverage as inpt. Hgb A1C was 7.7. (5) Hypertension: Continued Coreg with hold parameters. Held HCTZ and Lisinopril in setting of MANOJ but BP remained low. Will d/c Coreg, HCTZ and Lisinopril at discharge -- f/u with PCP to discuss. (6) Hyperlipidemia: Continued Rosuvastatin 20 mg daily (7) Depression: Held Trintellix as noted; Continued Aripiprazole 2 mg daily. Resume Trintellix at discharge. (8) Attention deficit disorder (ADD) in adult: Continued Ritalin 10 mg TID (9) Muscle spasm: Cyclobenzaprine 5 mg TID PRN (10) Electrolyte abnormality: Presented with hyponatremia and hypokalemia likely related to HCTZ therapy. Improved after holding HCTZ. (11) DVT prophylaxis: SCDs. Discharged to home on 12/12/18. Total Time Total Time Spent Total Time Spent (In Minutes): >30 minutes Total Time Includes: Examination of the Patient, Discharge Planning, Medication Reconciliation, Communication With Other Providers and Other Discharge Plan Discharge Items Patient Disposition: Home - Self-Care Reason For Visit: HYPONATREMIA Discharge Diagnosis: Acute Kidney Injury, Pyelonephritis Condition: Good Discharge Goals: Decrease discomfort, Improve disease control, Improve function, Increase independence and Prevent disease Activity: As commented below Exercise/Sports: Gradually increase as tolerated Non-emergency contact: Primary Care Provider Call non-emergency contact if: you have any medication questions, your symptoms worsen, your pain is not controlled, your pain is worsening, your pain is unusual for you, your pain is concerning for you and you have a fever Follow-up/Referrals: PCP,NO [Primary Care Provider] - Diet: Carb Consistent or DM2 and Heart Healthy Addtl Provider Instructions: 1. Acute Kidney Injury/Pyelonephritis/Recent kidney stone * Please take Cefdinir 300 mg twice daily for treatment of pyelonephritis. * Drink plenty of fluids to avoid dehydration. * Please follow up with your primary care provider in 7-10 days to discuss this hospital admission. 2. Hypotension * Please hold home HCTZ, Lisinopril and Coreg due to low blood pressure during this admission. * Please follow up with your primary care provider to discuss resuming these medications. * Please monitor your BP at home if you develop symptoms of high blood pressure. 3. Please address your anemia with your primary care physician once you return to [place]. Prescriptions: New cefdinir 300 mg capsule 300 mg PO BID 10 Days Qty: 20 RF: 0 Continued methylphenidate HCl [Ritalin] 10 mg Tablet 10 mg PO TID RF: 0 metformin 1,000 mg tablet 1,000 mg PO BID RF: 0 Trintellix 20 mg tablet 20 mg PO DAILY RF: 0 rosuvastatin 20 mg tablet 20 mg PO DAILY RF: 0 cyclobenzaprine 5 mg tablet 5 mg PO TID PRN (Reason: Spasms) RF: 0 aripiprazole 2 mg tablet 2 mg PO QAM RF: 0 Discontinued lisinopril 20 mg tablet 20 mg PO DAILY RF: 0 carvedilol 12.5 mg tablet 12.5 mg PO BID RF: 0 hydrochlorothiazide 12.5 mg tablet 12.5 mg PO DAILY RF: 0 Stand-Alone Forms: My [facility] Sandor/Other Patient Handouts: Cefdinir Oral capsule Discharge Orders: Discharge Order (Routine); Ordered 12/12/18 Ordered By: Nika Calloway Admission Data Admit Date/Time: 12/11/18 00:58 Attending Provider: Nika Calloway Admit Provider: Javier Akbar Primary Care Provider: PCP,NO Other Providers: Javier Akbar Service: Medical Other Interventions: Discharge Summary Assessment (RN) Last Done: 12/12/18 13:01 Pending Studies at Discharge: Yes Studies:: Urine Culture 12/10 pending. DC Date/Time DO NOT enter until pt leaves facility: 12/12/18 13:34 Supervising Physician Co-Signing Physician Notes PA Supervision Note: I personally saw and examined the patient. I verified all buck points and agree with EMORY Garcia with the following exceptions and/or additions: Patient doing very well, no pain, tolerating p.o. Vitals reviewed Gen: AAOx3, NAD HEENT: Anicteric sclerae, EOMI CV: RRR no mgr nl S1S2 Pulm: CTAB no wcr Abd: +BS soft NT ND no masses or hernias Ext: No edema, 2+ DP pulses Skin: No rashes, warm/dry Neuro: Full strength throughout 53-year-old female here with the above history and MANOJ and pyelonephritis-much improved -DC to home on antibiotics orally as above and with close follow-up with PCP
== END 2018-12-12 13:34 | disposition home or self-care (01) | DRG 683 ==
LOC: ED 21:02 → 3W 12-11 00:58 → SUATTDRO 12-11 00:58 → 3W 12-11 02:46